=== PATIENT | female | born 1980 ===

== ENCOUNTER 2018-05-31 10:04 | Day surgery (SDC) | payer BC ==
[~2018-05-31] VITALS: Ht 157.5 cm; Wt 54.4 kg
[2018-05-31 10:56] VITALS: BP 123/74
[2018-05-31 10:56] LABS: microscopic required? NO
[2018-05-31 11:07] LABS: UA SPECIFIC GRAVITY 1.025 (1.005-1.035); urine erythrocyte NEGATIVE (NEGATIVE)
[2018-05-31 16:51] VITALS: BP 133/89
== END 2018-05-31 16:45 | disposition home or self-care (01) ==
LOC: DS 10:04
PROVIDERS: Surgery
PROC: 0HBU0ZZ Excision of Left Breast, Open Approach (ICD-10-PCS; principal; 2018-05-31 13:30)
DX: D24.2 Benign neoplasm of left breast (principal)
CPT/HCPCS: J0690; J1170; J2001; J2175; J2250; J2405; J3010; J3490; J7120